=== PATIENT | female | born 2000 | race Caucasian/White ===

== ENCOUNTER 2025-06-05 09:56 | Outpatient (OUT) | payer BC, SELFPAY ==
--- OUTSIDE RECORDS SUMMARY | 2025-06-05 10:06 | XMS_ITS | Clinical Summary ---
Author Organization [facility] Address [id number] [address] [place] [address] Care Team Providers Care Information Operator Name Role Phone Cain Henry MD Primary Care Provider [phone] Allergies No known active allergies Medications ibuprofen (MOTRIN) 800 mg tablet Take 1 tablet (800 mg total) by mouth every 8 (eight) hours as needed for pain. 30 tablet 4 Active Additional Information Patient not taking.Reported on 11/25/2023 acetaminophen (TYLENOL EXTRA STRENGTH) 500 mg tablet Take 2 tablets (1,000 mg total) by mouth every 8 (eight) hours as needed for pain. 30 tablet 4 Active Additional Information Patient not taking.Reported on 11/25/2023 FALMINA, 28, 0.1-20 mg-mcg per tablet TAKE 1 TABLET BY MOUTH DAILY 84 tablet 3 5 Active Active Problems No known active problems Social History Tobacco Use Types Packs/Day Years Used Date Smoking Tobacco: Never Passive Smoke Exposure: Current Smokeless Tobacco: Never Alcohol Use Standard Drinks/Week Comments Never 0 (1 standard drink = 0.6 oz pur e alcohol) Hunger Screening Answer Date Recorded Within the past 12 months we worried whether our food would run out before we got money to buy more. Never True 10/29/2023 Within the past 12 months th e food we bought just didn't last and we didn't have money to get more. Never True 10/29/2023 Comments No Sex and Gender Information Value Date Recorded Sex Assigned at Female 09/05/2023 6:50 PM EST Legal Sex Female 2:59 PM EST Gender Identity Female 09/05/2023 6:50 PM EST Sexual Orientation Not on file Last Filed Vital Signs Vital Sign Reading Time Taken Comments Blood Pressure 129/96 11/25/2023 2:33 PM EDT Pulse 84 11/12/2023 10:14 AM EDT Temperature 36.4 C (97.5 F) 11/12/2023 10:21 AM EDT Respiratory Rate 11 11/12/2023 10:1 4 AM EDT Oxygen Saturation 100% 11/12/2023 10: 14 AM EDT Inhaled Oxygen Concentration - - Weight 55.2 kg (121 lb 12.8 oz) 11/25/2023 2:33 PM EDT Height 160 cm (5' 2.99 ) 11/25/2023 2:33 PM EDT Body Mass Index 21.58 11/25/2023 2:33 PM EDT Plan of Treatment Health Maintenance Due Date Last Done Comments Chlamydia Screening 2002 Depression Screening 2014 DTaP,Tdap and Td Vaccines (2 - Td or Tdap) 06/03/2024 06/03/2014 Adult BMI Screening 11/24/2024 11/25/2023 Tobacco Screening 11/24/2024 11/25/2023 COVID-19 Vaccine ( - season) 04/26/202508/2020 Influenza Vaccine 04/26/2025 Pap Smear 10/11/2026 10/11/2023 Medical Devices Not on file Procedures Procedure Name Priority Date/Time Associated Diagnosis Comments PAP SMEAR Routine 10/11/2023 7:17 AM EST Women's annual routine gynecological examination from Last 3 Months or Most Recently Relevant to Health Maintenance Results * Pap Smear (10/11/2023 7:17 AM EST) 10/11/2023 7:17 AM EST 10/11/2023 7:18 AM EST Narrative COPATH - 10/22/2023 12:25 PM EST [facility] [address] [place] [address] Gynecologic Cytology Consultation Patient Name:HOANG DEWITTAbigail:2000 (Age: 23)Gender:FTaken:4Reported:4Physician(s):Nyasia Rajan M.D. ([phone])Copy To: Rec. #:[id number]: #[id number] Final Cytologic Interpretation ThinPrep Pap Test (Cervical): Satisfactory for evaluation. A transformazion zone component is not identified via imaging-assisted review, using [employer] retargeting Thin Prep Imaging System, within 22 microscopic benoit of vew. NEGATIVE FOR INTRAEPITHELIAL LESION OR MALIGNANCY. [facility]/10/22/2023 [facility] [place] [address], License number: [id number]. Electronically Signed Out By ALICE Alonzo(ASCP) Date of Last Menstrual Period: (None Given) Other Clinical Conditions: Z01.419 Medical Staff Director exam wo/abn findings Source of Specimen ThinPrep Pap Test (Cervical) Thin Prep Pap (BALLAST INSPECTOR) Fee Code(s): G0145 us Nyasia Rajan MD PATHOLOGY/CYTOLOGY ORDERABLES Final Result COPATH from Last 3 Months or Most Recently Relevant to Health Maintenance Insurance [employer] Care Teams Information Operator Relationship Specialty Start Date End Date Cain Henry MD PCP - General Family Medicine 10/29/23
[2025-06-05 10:18] LABS: Hematocrit 41.6 % (36.0-48.0); Hemoglobin 14.2 g/dL (12.0-16.0); Immature Granulocytes Abs Auto 0.01 10^3/uL (0.00-0.03); Immature Granulocytes Pct Auto 0.2 % (0.0-0.5); Lymphocytes Absolute Auto 2.9 10^3/uL (1.2-3.8); Mean Corpuscular HGB Conc 34.1 g/dL (29.9-35.2); Mean Corpuscular Hemoglobin 28.1 pg (26.7-34.0); Mean Corpuscular Volume 82.4 fL (81.0-99.0); Platelet Count 274 10^3/uL (150-450); Red Blood Count 5.05 10^6/uL (4.20-5.40); White Blood Count 6.6 10^3/uL (4.0-11.0)
[2025-06-05 11:13] LABS: Alanine Aminotransferase 29 U/L (14-59); Albumin Globulin Ratio 1.0; Albumin Level 4.2 g/dL (3.4-5.0); Alkaline Phosphatase 61 U/L (46-116); Anion Gap 13.1; Aspartate Amino Transferase 14 U/L (15-37); Blood Urea Nitrogen 6.0 mg/dL (7.0-18.0); Calcium 9.0 mg/dL (8.5-10.1); Carbon Dioxide 23.5 mmol/L (21.0-32.0); Chloride 105 mmol/L (98-107); Cholesterol 185 mg/dL (<=200); Estimated GFR (African America >60 (>=60 mL/min/1.73m^2); Estimated GFR (Non-African Ame >60 (>=60 mL/min/1.73m^2); Free T3 2.50 pg/mL (2.18-3.98); Globulin 4.0 g/dL; Glucose 99 mg/dL (74-106); HDL Cholesterol 51 mg/dL (40-60); Potassium 3.6 mmol/L (3.5-5.1); Sodium 138 mmol/L (136-145); Thyroid Stimulating Hormone 2.377 uIU/mL (0.358-3.740); Total Protein 8.2 g/dL (6.4-8.2); Triglycerides 55 mg/dL (<=150); VLDL CHOLESTEROL 11.0 mg/dL
== END 2025-06-05 09:57 | disposition home or self-care (01) ==
LOC: LAB 10:04
PROVIDERS: PCP Family Medicine; Visit Provider Family Medicine
DX: Z00.00 Encounter for general adult medical examination without abnormal findings (principal)
CPT/HCPCS: 36415; 80053; 80061; 83036; 84436; 84443; 84481; 85025